=== PATIENT | male | born 1940 | race Caucasian/White ===

== ENCOUNTER 2020-05-20 15:24 | Inpatient (IN) | payer MEDICARE ==
[~2020-05-20] VITALS: Ht 193 cm; Wt 105.2 kg
[~2020-05-20 15:24] MED LIST: ACARBOSE100 MG PO; ACTOS45 MG PO; ASPIRIN81 MG PO; FUROSEMIDE20 MG PO; GLIPIZIDE5 MG PO; LEVOTHYROXINE50 MCG PO; LISINOPRIL-HCT1 EACH PO; METFORMIN HCL850 MG PO; METOPROLOL TART25 MG PO; PRAVASTATIN SOD10 MG PO
[2020-05-20] MEDS ORDERED: PANTOPRAZOLE 40 MG 10ML VIAL IV ONE (16:30)
[2020-05-20 17:00] LABS: BASOPHILS # (AUTO) 0.1 (0.0-0.1); BASOPHILS % 0.8 % (0.0-1.0); EOSINOPHILS # (AUTO) 0.2 (0.0-0.4); EOSINOPHILS % 2.6 % (0.0-6.0); HEMATOCRIT 31.8 % (38.2-49.6); LYMPHOCYTES # (AUTO) 0.6 (1.0-3.2); LYMPHOCYTES % 8.6 % (18.0-39.1); MEAN CORPUSCULAR HEMOGLOBIN 29.6 pg (28-32); MEAN CORPUSCULAR HGB CONC 31.4 g/dL (31-35); MEAN CORPUSCULAR VOLUME 94.1 fL (81-99); MONOCYTES # (AUTO) 0.6 (0.2-0.8); NEUTROPHILS # (AUTO) 5.2 (2.1-6.9); NEUTROPHILS % 78.8 % (38.7-80.0); PLATELET COUNT 362 x10e3/uL (140-360); RED BLOOD COUNT 3.38 x10e6/uL (4.3-5.7); RED CELL DISTRIBUTION WIDTH 14.9 % (11.7-14.4)
[2020-05-20 17:12] LABS: INR 0.94
[2020-05-20 17:13] LABS: PARTIAL THROMBOPLASTIN TIME 31.3 seconds (23.8-35.5)
[2020-05-20 17:23] LABS: ALBUMIN 3.4 g/dL (3.5-5.0); ALBUMIN/GLOBULIN RATIO 0.8 (0.8-2.0); CALCIUM 9.3 mg/dL (8.4-10.2); CREATININE, SERUM 1.29 mg/dL (0.72-1.25); MAGNESIUM 1.5 MG/DL (1.3-2.1)
[2020-05-20 17:29] LABS: CREATINE KINASE MB 2.4 ng/mL (0-5.0)
[2020-05-20] MEDS ORDERED: ONDANSETRON HCL INJ 2MG/ML 2ML 2 MG/ML VIAL IV PRN (22:45)
[2020-05-20] MEDS ORDERED: SODIUM CHLORIDE FLUSH 10 ML SYR INJ PRN (22:45)
[2020-05-20] MEDS ORDERED: PANTOPRAZOLE 40 MG 10ML VIAL ONE (22:53)
[2020-05-21] VITALS (16 sets, daily range): BP systolic 116–169; BP diastolic 46–81
[2020-05-21 05:17] LABS: BASOPHILS % 0.6 % (0.0-1.0); EOSINOPHILS # (AUTO) 0.2 (0.0-0.4); EOSINOPHILS % 2.6 % (0.0-6.0); HEMATOCRIT 26.5 % (38.2-49.6); HEMOGLOBIN 8.6 g/dL (14.0-18.0); LYMPHOCYTES # (AUTO) 0.6 (1.0-3.2); LYMPHOCYTES % 8.6 % (18.0-39.1); MEAN CORPUSCULAR HEMOGLOBIN 29.9 pg (28-32); MEAN CORPUSCULAR HGB CONC 32.5 g/dL (31-35); MONOCYTES # (AUTO) 0.7 (0.2-0.8); MONOCYTES % 10.2 % (4.4-11.3); NEUTROPHILS # (AUTO) 5.1 (2.1-6.9); NEUTROPHILS % 77.8 % (38.7-80.0); PLATELET COUNT 302 x10e3/uL (140-360); RED BLOOD COUNT 2.88 x10e6/uL (4.3-5.7); RED CELL DISTRIBUTION WIDTH 14.6 % (11.7-14.4)
[2020-05-21 05:57] LABS: ALANINE AMINOTRANSFERASE 15 IU/L (0-55); ALBUMIN 2.8 g/dL (3.5-5.0); ALBUMIN/GLOBULIN RATIO 0.8 (0.8-2.0); ALKALINE PHOSPHATASE 56 IU/L (40-150); ANION GAP 11.2 mmol/L (8-16); BLOOD UREA NITROGEN 13 mg/dL (7-26); BUN/CREATININE RATIO 13 (6-25); CALCIUM 8.4 mg/dL (8.4-10.2); CARBON DIOXIDE 31 mmol/L (22-29); CHLORIDE 99 mmol/L (98-107); CREATININE, SERUM 0.99 mg/dL (0.72-1.25); EST GLOMERULAR FILTRATION RATE > 60 ML/MIN (60-); GLUCOSE 199 mg/dL (74-118); POTASSIUM 3.2 mmol/L (3.5-5.1); SODIUM 138 mmol/L (136-145)
[2020-05-21 06:17] LABS: CREATINE KINASE MB 1.7 ng/mL (0-5.0)
[2020-05-21 06:23] LABS: CLARITY,URINE CLEAR (CLEAR); COLOR,URINE YELLOW (YELLOW); LEUKOCYTE ESTERASE ,URINE NEGATIVE (NEGATIVE); NITRITE,URINE NEGATIVE (NEGATIVE)
[2020-05-21 06:24] LABS: KETONES,URINE NEGATIVE (NEGATIVE); PROTEIN,URINE DIPSTICK 2+ (NEGATIVE); URINE UROBILINOGEN 0.2 mg/dL (0.2 - 1)
[2020-05-21 06:49] LABS: WBC,URINE (MAN) 0-5 /HPF (0-5)
[2020-05-21 06:50] LABS: BACTERIA,URINE RARE /HPF; EPITHELIAL CELLS,URINE FEW /LPF; RBC,URINE 21-50 /HPF (0-5); TRANSITIONAL EPI CELLS,URINE RARE
[2020-05-21] MEDS ORDERED: ZOLPIDEM TARTRATE 5 MG TAB PO PRN (08:15)
[2020-05-21] MEDS: LEVOTHYROXINE SODIUM 50 MCG TAB PO SCH (08:30)
[2020-05-21] MEDS: ASPIRIN 81 MG CHEW TAB PO SCH (09:00)
[2020-05-21] MEDS ORDERED: DEXTROSE 50% SYRINGE 50 ML IV PRN (09:15)
[2020-05-21] MEDS ORDERED: ONDANSETRON HCL INJ 2MG/ML 2ML 2 MG/ML VIAL IV PRN (09:45)
[2020-05-21] MEDS ORDERED: ACETAMINOPHEN 325 MG TAB PO PRN (09:45)
[2020-05-21] MEDS ORDERED: ACETAMINOPHEN/CODEINE 300MG - 30MG TAB PO PRN (09:45)
[2020-05-21] MEDS ORDERED: HYDRALAZINE HCL 20 MG/ML VIAL IV PRN (09:45)
[2020-05-21] MEDS: INSULIN LISPRO 100 UNIT/1 ML 3ML VIAL SQ SCH ×3 (11:30→21:10)
[2020-05-21] MEDS ORDERED: POTASSIUM CHLORIDE 10MEQ EA PO ONE (11:45)
[2020-05-21] MEDS: FUROSEMIDE INJ 10 MG/ML 2 ML VIAL IV SCH ×2 (13:17→22:18)
[2020-05-21 14:38] LABS: CREATINE KINASE MB 1.8 ng/mL (0-5.0)
[2020-05-21 14:50] LABS: BODY FLUID APPEARANCE SL.CLOUDY; BODY FLUID COLOR YELLOW; BODY FLUID TYPE PLEURAL
[2020-05-21 15:23] LABS: RBC,BODY FLUID 23 cells/uL; WBC,BODY FLUID 85 cells/uL
[2020-05-21] MEDS: HYDROCHLOROTHIAZIDE 25 MG TAB PO SCH (16:23)
[2020-05-21] MEDS: FAMOTIDINE 20 MG TAB PO SCH (16:23)
[2020-05-21] MEDS: POTASSIUM CHLORIDE 10MEQ EA PO SCH (16:24)
[2020-05-21] MEDS: ENOXAPARIN SOD INJ 40 MG/0.4 ML SYR SC SCH (16:25)
[2020-05-21] MEDS: METOPROLOL TARTRATE 25 MG TAB PO SCH (16:25)
[2020-05-21] MEDS: LISINOPRIL 20 MG TAB PO SCH (16:25)
[2020-05-21 16:36] LABS: LYMPHOCYTES,BODY FLUID 53 %; MONO/MACROPHG,BODY FLUID 14 %; NEUTROPHILS,BODY FLUID 22 %; OTHER CELLS,BODY FLUID 11 %
[2020-05-21] MEDS ORDERED: POTASSIUM CHLORIDE 10MEQ EA PO SCH (17:00)
[2020-05-21] MEDS ORDERED: FUROSEMIDE INJ 10 MG/ML 2 ML VIAL IV SCH (17:00)
[2020-05-21] MEDS: PRAVASTATIN 20 MG TAB PO SCH (21:08)
[2020-05-22] VITALS (11 sets, daily range): BP systolic 109–147; BP diastolic 54–68
[2020-05-22] MEDS: LEVOTHYROXINE SODIUM 50 MCG TAB PO SCH (05:25)
[2020-05-22] MEDS: FUROSEMIDE INJ 10 MG/ML 2 ML VIAL IV SCH ×3 (05:25→21:31)
[2020-05-22 05:53] LABS: BASOPHILS # (AUTO) 0.1 (0.0-0.1); BASOPHILS % 0.7 % (0.0-1.0); EOSINOPHILS # (AUTO) 0.2 (0.0-0.4); EOSINOPHILS % 2.2 % (0.0-6.0); LYMPHOCYTES # (AUTO) 0.7 (1.0-3.2); LYMPHOCYTES % 9.7 % (18.0-39.1); MEAN CORPUSCULAR HGB CONC 32.1 g/dL (31-35); MEAN CORPUSCULAR VOLUME 93.3 fL (81-99); MONOCYTES # (AUTO) 0.7 (0.2-0.8); MONOCYTES % 9.4 % (4.4-11.3); NEUTROPHILS # (AUTO) 5.9 (2.1-6.9); NEUTROPHILS % 77.7 % (38.7-80.0); PLATELET COUNT 317 x10e3/uL (140-360); RED CELL DISTRIBUTION WIDTH 14.6 % (11.7-14.4)
[2020-05-22 06:24] LABS: ALANINE AMINOTRANSFERASE 13 IU/L (0-55); ALBUMIN 2.9 g/dL (3.5-5.0); ALBUMIN/GLOBULIN RATIO 0.8 (0.8-2.0); ALKALINE PHOSPHATASE 57 IU/L (40-150); ANION GAP 11.5 mmol/L (8-16); BLOOD UREA NITROGEN 13 mg/dL (7-26); BUN/CREATININE RATIO 13 (6-25); CALCIUM 8.4 mg/dL (8.4-10.2); CARBON DIOXIDE 30 mmol/L (22-29); CHLORIDE 98 mmol/L (98-107); CREATININE, SERUM 0.99 mg/dL (0.72-1.25); EST GLOMERULAR FILTRATION RATE > 60 ML/MIN (60-); GLUCOSE 161 mg/dL (74-118); POTASSIUM 3.5 mmol/L (3.5-5.1); SODIUM 136 mmol/L (136-145)
[2020-05-22] MEDS: METOPROLOL TARTRATE 25 MG TAB PO SCH ×2 (09:00→17:22)
[2020-05-22] MEDS: LISINOPRIL 20 MG TAB PO SCH ×2 (09:00→17:21)
[2020-05-22] MEDS: HYDROCHLOROTHIAZIDE 25 MG TAB PO SCH ×2 (11:10→17:21)
[2020-05-22] MEDS: FAMOTIDINE 20 MG TAB PO SCH ×2 (11:10→17:22)
[2020-05-22] MEDS: ASPIRIN 81 MG CHEW TAB PO SCH (11:10)
[2020-05-22] MEDS: POTASSIUM CHLORIDE 10MEQ EA PO SCH ×2 (11:11→17:21)
[2020-05-22] MEDS: INSULIN LISPRO 100 UNIT/1 ML 3ML VIAL SQ SCH ×4 (11:12→21:32)
[2020-05-22] MEDS: ENOXAPARIN SOD INJ 40 MG/0.4 ML SYR SC SCH (17:15)
[2020-05-22] MEDS: PRAVASTATIN 20 MG TAB PO SCH (21:31)
[2020-05-23] VITALS: BP 116/56
[2020-05-23 04:00] VITALS: BP 132/62
[2020-05-23] MEDS: FUROSEMIDE INJ 10 MG/ML 2 ML VIAL IV SCH (06:00)
[2020-05-23] MEDS: LEVOTHYROXINE SODIUM 50 MCG TAB PO SCH (06:00)
[2020-05-23 06:21] LABS: BASOPHILS # (AUTO) 0.1 (0.0-0.1); BASOPHILS % 0.9 % (0.0-1.0); EOSINOPHILS # (AUTO) 0.2 (0.0-0.4); EOSINOPHILS % 2.8 % (0.0-6.0); HEMATOCRIT 28.1 % (38.2-49.6); HEMOGLOBIN 8.8 g/dL (14.0-18.0); LYMPHOCYTES # (AUTO) 0.7 (1.0-3.2); LYMPHOCYTES % 11.8 % (18.0-39.1); MEAN CORPUSCULAR HEMOGLOBIN 29.1 pg (28-32); MEAN CORPUSCULAR HGB CONC 31.3 g/dL (31-35); MONOCYTES # (AUTO) 0.7 (0.2-0.8); MONOCYTES % 12.7 % (4.4-11.3); NEUTROPHILS # (AUTO) 4.1 (2.1-6.9); NEUTROPHILS % 71.5 % (38.7-80.0); PLATELET COUNT 302 x10e3/uL (140-360); RED BLOOD COUNT 3.02 x10e6/uL (4.3-5.7); RED CELL DISTRIBUTION WIDTH 14.6 % (11.7-14.4)
[2020-05-23 06:32] LABS: ANION GAP 11.4 mmol/L (8-16); BLOOD UREA NITROGEN 17 mg/dL (7-26); BUN/CREATININE RATIO 15 (6-25); CALCIUM 8.3 mg/dL (8.4-10.2); CARBON DIOXIDE 34 mmol/L (22-29); CHLORIDE 93 mmol/L (98-107); EST GLOMERULAR FILTRATION RATE > 60 ML/MIN (60-); GLUCOSE 262 mg/dL (74-118); POTASSIUM 3.4 mmol/L (3.5-5.1); SODIUM 135 mmol/L (136-145)
[2020-05-23 07:31] VITALS: BP 109/60
[2020-05-23 07:49] VITALS: BP 109/60
[2020-05-23] MEDS: METOPROLOL TARTRATE 25 MG TAB PO SCH (07:51)
[2020-05-23] MEDS: LISINOPRIL 20 MG TAB PO SCH (07:52)
[2020-05-23] MEDS: INSULIN LISPRO 100 UNIT/1 ML 3ML VIAL SQ SCH (08:27)
[2020-05-23] MEDS ORDERED: METFORMIN HCL850 MG PO (09:00)
[2020-05-23] MEDS ORDERED: FUROSEMIDE40 MG PO ×2 (09:01→09:03)
[2020-05-23] MEDS ORDERED: K DUR10 MEQ PO (09:03)
[2020-05-23] MEDS: FAMOTIDINE 20 MG TAB PO SCH (09:07)
[2020-05-23] MEDS: ASPIRIN 81 MG CHEW TAB PO SCH (09:07)
[2020-05-23] MEDS: HYDROCHLOROTHIAZIDE 25 MG TAB PO SCH (09:07)
[2020-05-23] MEDS: POTASSIUM CHLORIDE 10MEQ EA PO SCH (09:07)
[2020-05-23] MEDS ORDERED: POTASSIUM CHLORIDE 10MEQ EA PO ONE (10:15)
== END 2020-05-23 10:50 | disposition home health service (06) | DRG 292 ==
LOC: ER 16:14 → ERHOLD 22:45 → MED/SURG 05-21 01:02 → OBSVTOIN 05-22 09:35
PROVIDERS: ADMIT Internal Medicine; ATTEND Internal Medicine
PROC: 0W993ZZ Drainage of Right Pleural Cavity, Percutaneous Approach (ICD-10-PCS; principal; 2020-05-21)
DX: I11.0 Hypertensive heart disease with heart failure (principal); L97.821 Non-pressure chronic ulcer of other part of left lower leg limited to breakdown of skin; L97.511 Non-pressure chronic ulcer of other part of right foot limited to breakdown of skin; I50.33 Acute on chronic diastolic (congestive) heart failure; I48.0 Paroxysmal atrial fibrillation; D64.9 Anemia, unspecified; E03.9 Hypothyroidism, unspecified; E78.5 Hyperlipidemia, unspecified; Z95.1 Presence of aortocoronary bypass graft; Z95.5 Presence of coronary angioplasty implant and graft; E11.9 Type 2 diabetes mellitus without complications; I87.8 Other specified disorders of veins; I83.028 Varicose veins of left lower extremity with ulcer other part of lower leg; Z11.52 Encounter for screening for COVID-19; Z79.84 Long term (current) use of oral hypoglycemic drugs
CPT/HCPCS: 32555; 36415; 71045; 71250; 74470; 80048; 80053; 81001; 82550; 82553; 82948; 83615; 83735; 83880; 84157; 84478; 84484; 85025; 85610; 85730; 86850; 86900; 87070; 87086; 87205; 88112; 88305; 89051; 93005; 93306; 99251; 99284; G0378; J1650; J1940; U0002

== ENCOUNTER → 2020-06-16 | Outpatient (CLI) | payer MEDICARE ==
[~2020-06-16] MED LIST changes: +FUROSEMIDE40 MG PO; +K DUR10 MEQ PO
[2020-06-16 12:19] LABS: BODY FLUID APPEARANCE SL.CLOUDY; BODY FLUID COLOR YELLOW; BODY FLUID TYPE PLEURAL; RBC,BODY FLUID 347 cells/uL; WBC,BODY FLUID 127 cells/uL
[2020-06-16 12:40] LABS: LYMPHOCYTES,BODY FLUID 41 %; MONO/MACROPHG,BODY FLUID 43 %; NEUTROPHILS,BODY FLUID 16 %
== END ==
LOC: US 09:02
PROVIDERS: ATTEND Internal Medicine
DX: J90 Pleural effusion, not elsewhere classified (principal)
CPT/HCPCS: 32555; 36415; 71045; 82945; 83615; 84157; 89051

== ENCOUNTER → 2020-06-17 | Outpatient (CLI) | payer MEDICARE ==
[2020-06-17 12:35] LABS: BLOOD UREA NITROGEN 15 mg/dL (7-26); BUN/CREATININE RATIO 14 (6-25); CREATININE, SERUM 1.08 mg/dL (0.72-1.25); EST GLOMERULAR FILTRATION RATE > 60 ML/MIN (60-)
== END ==
LOC: CT 12:01
PROVIDERS: ATTEND Internal Medicine
DX: Z09 Encounter for follow-up examination after completed treatment for conditions other than malignant neoplasm (principal); J90 Pleural effusion, not elsewhere classified
CPT/HCPCS: 36415; 71250; 82565; 84520

== ENCOUNTER → 2020-07-16 | Outpatient (CLI) | payer MEDICARE ==
[2020-07-16 10:31] LABS: HEMOGLOBIN 9.9 g/dL (14.0-18.0)
[2020-07-16 10:51] LABS: INR 0.97; PROTHROMBIN TIME 13.5 seconds (11.9-14.5)
[2020-07-16 10:52] LABS: PARTIAL THROMBOPLASTIN TIME 32.8 seconds (23.8-35.5)
[2020-07-16 15:30] LABS: BODY FLUID APPEARANCE CLEAR; BODY FLUID COLOR YELLOW; BODY FLUID TYPE PLEURAL
[2020-07-16 15:31] LABS: RBC,BODY FLUID 902 cells/uL; WBC,BODY FLUID 191 cells/uL
[2020-07-16 17:28] LABS: LYMPHOCYTES,BODY FLUID 47 %; MONO/MACROPHG,BODY FLUID 46 %; NEUTROPHILS,BODY FLUID 1 %; OTHER CELLS,BODY FLUID 6 %
== END ==
LOC: US 09:43
PROVIDERS: ATTEND Internal Medicine
DX: J90 Pleural effusion, not elsewhere classified (principal)
CPT/HCPCS: 32555; 36415; 71045; 83615; 84157; 85014; 85049; 85610; 85730; 87070; 87205; 88112; 88305; 89051

== ENCOUNTER 2021-12-21 06:46 | Inpatient (IN) | payer MEDICARE ==
[2021-12-17 11:08] LABS: BASOPHILS # (AUTO) 0.1 (0.0-0.1); BASOPHILS % 0.9 % (0.0-1.0); EOSINOPHILS # (AUTO) 0.2 (0.0-0.4); HEMATOCRIT 37.5 % (38.2-49.6); HEMOGLOBIN 12.1 g/dL (14.0-18.0); LYMPHOCYTES # (AUTO) 0.8 (1.0-3.2); LYMPHOCYTES % 14.5 % (18.0-39.1); MEAN CORPUSCULAR HEMOGLOBIN 30.9 pg (28-32); MEAN CORPUSCULAR HGB CONC 32.3 g/dL (31-35); MEAN CORPUSCULAR VOLUME 95.7 fL (81-99); MONOCYTES # (AUTO) 0.5 (0.2-0.8); MONOCYTES % 8.9 % (4.4-11.3); NEUTROPHILS # (AUTO) 4.2 (2.1-6.9); NEUTROPHILS % 72.4 % (38.7-80.0); PLATELET COUNT 297 x10e3/uL (140-360); RED BLOOD COUNT 3.92 x10e6/uL (4.3-5.7); RED CELL DISTRIBUTION WIDTH 12.8 % (11.7-14.4)
[2021-12-17 11:22] LABS: INR 0.92; PROTHROMBIN TIME 13.2 seconds (11.9-14.5)
[2021-12-17 11:26] LABS: ANION GAP 12.3 mmol/L (8-16); CALCIUM 8.7 mg/dL (8.4-10.2); CREATININE, SERUM 1.21 mg/dL (0.72-1.25); POTASSIUM 4.3 mmol/L (3.5-5.1)
[2021-12-21] VITALS (16 sets, daily range): BP systolic 128–176; BP diastolic 56–98
[~2021-12-21] VITALS: Ht 188 cm; Wt 98.9 kg
[~2021-12-21 06:46] MED LIST changes: +B12; +B6; +BASAGLAR K100 UNIT/1; +COLACE100 MG/10 PO; +D3; +HEPARIN SOD (PORCINE) 1000 UNIT/ML 30ML ONE; +LIDOCAINE HCL 1% 2 ML AMP ONE; +LISINOPRIL10 MG PO; +NOVOLOG100 UNIT/1 SC; +PROTAMINE SULFATE 10 MG/ML 5 ML VIAL ONE; +RANEXA1000 MG PO
[2021-12-21] MEDS ORDERED: THROMBIN FOR SOLN 5,000 UNIT VIAL ONE (07:03)
[2021-12-21] MEDS ORDERED: INSULIN REGULAR, HUMAN 100 UNIT/1 ML ONE ×3 (07:05→09:54)
[2021-12-21] MEDS ORDERED: LABETALOL HCL 0 ML ONE (09:56)
[2021-12-21] MEDS ORDERED: FENTANYL CITRATE/PF 100MCG/2 ML INJ ONE (10:04)
[2021-12-21 10:15] LABS: BASOPHILS # (AUTO) 0.1 (0.0-0.1); BASOPHILS % 0.8 % (0.0-1.0); EOSINOPHILS # (AUTO) 0.1 (0.0-0.4); HEMATOCRIT 31.6 % (38.2-49.6); HEMOGLOBIN 10.5 g/dL (14.0-18.0); LYMPHOCYTES # (AUTO) 0.8 (1.0-3.2); MEAN CORPUSCULAR HEMOGLOBIN 30.4 pg (28-32); MEAN CORPUSCULAR HGB CONC 33.2 g/dL (31-35); MEAN CORPUSCULAR VOLUME 91.6 fL (81-99); MONOCYTES # (AUTO) 0.6 (0.2-0.8); MONOCYTES % 9.4 % (4.4-11.3); NEUTROPHILS # (AUTO) 4.8 (2.1-6.9); NEUTROPHILS % 74.5 % (38.7-80.0); PLATELET COUNT 228 x10e3/uL (140-360); RED BLOOD COUNT 3.45 x10e6/uL (4.3-5.7); RED CELL DISTRIBUTION WIDTH 12.4 % (11.7-14.4)
[2021-12-21] MEDS ORDERED: HYDRALAZINE HCL 20 MG/ML VIAL ONE (10:17)
[2021-12-21] MEDS ORDERED: Morphine 4mg INJECTION 4 MG/ML INJ IV PRN (10:30)
[2021-12-21] MEDS ORDERED: Morphine 2mg Syringe 2 MG/ML SYR ONE ×2 (10:38→12:27)
[2021-12-21] MEDS ORDERED: ONDANSETRON HCL 4 MG ORAL DISINTEGRATING TAB PO PRN (10:45)
[2021-12-21] MEDS ORDERED: HYDROCODONE/APAP 5MG-325MG TAB PO PRN ×2 (10:45)
[2021-12-21 10:54] LABS: ALBUMIN 3.2 g/dL (3.5-5.0); ALBUMIN/GLOBULIN RATIO 0.8 (0.8-2.0); ANION GAP 12.3 mmol/L (8-16); CREATININE, SERUM 1.2 mg/dL (0.72-1.25); POTASSIUM 3.3 mmol/L (3.5-5.1)
[2021-12-21] MEDS ORDERED: DEXTROSE 50% SYRINGE 50 ML IV PRN (11:00)
[2021-12-21] MEDS ORDERED: SODIUM CHLORIDE 0.9% 1000ML 1,000 ML ONE (11:55)
[2021-12-21] MEDS: LABETALOL HCL 5 MG/ML 20ML VIAL IV PRN (13:40)
[2021-12-21] MEDS ORDERED: HYDRALAZINE HCL 20 MG/ML VIAL IV ONE (16:00)
[2021-12-21] MEDS: METOPROLOL TARTRATE 25 MG TAB PO SCH (16:54)
[2021-12-21] MEDS: Morphine 2mg Syringe 2 MG/ML SYR IV PRN ×2 (17:10→20:31)
[2021-12-21] MEDS: SODIUM CHLORIDE 0.9% 1000ML 1,000 ML IV SCH ×2 (17:44→19:27)
[2021-12-21] MEDS: INSULIN REGULAR, HUMAN 100 UNIT/1 ML SQ SCH ×3 (18:00→23:08)
[2021-12-21] MEDS: HYDRALAZINE HCL 20 MG/ML VIAL IV PRN ×2 (19:27→23:09)
[2021-12-21] MEDS: ATORVASTATIN 20 MG TAB PO SCH (20:10)
[2021-12-22] VITALS (27 sets, daily range): BP systolic 124–174; BP diastolic 44–68
[2021-12-22 04:51] LABS: BASOPHILS % 0.2 % (0.0-1.0); HEMATOCRIT 31.9 % (38.2-49.6); HEMOGLOBIN 10.8 g/dL (14.0-18.0); LYMPHOCYTES # (AUTO) 0.5 (1.0-3.2); LYMPHOCYTES % 5.5 % (18.0-39.1); MEAN CORPUSCULAR HEMOGLOBIN 30.9 pg (28-32); MEAN CORPUSCULAR HGB CONC 33.9 g/dL (31-35); MEAN CORPUSCULAR VOLUME 91.1 fL (81-99); MONOCYTES # (AUTO) 0.7 (0.2-0.8); MONOCYTES % 7.6 % (4.4-11.3); NEUTROPHILS # (AUTO) 7.6 (2.1-6.9); NEUTROPHILS % 86.2 % (38.7-80.0); PLATELET COUNT 269 x10e3/uL (140-360); RED CELL DISTRIBUTION WIDTH 13.1 % (11.7-14.4)
[2021-12-22 05:15] LABS: ALBUMIN 3.3 g/dL (3.5-5.0); ALBUMIN/GLOBULIN RATIO 0.8 (0.8-2.0); ANION GAP 12.6 mmol/L (8-16); CALCIUM 8.4 mg/dL (8.4-10.2); CREATININE, SERUM 1.02 mg/dL (0.72-1.25); POTASSIUM 3.6 mmol/L (3.5-5.1)
[2021-12-22] MEDS: LEVOTHYROXINE SODIUM 88 MCG TAB PO SCH (05:56)
[2021-12-22] MEDS: INSULIN REGULAR, HUMAN 100 UNIT/1 ML SQ SCH ×4 (05:58→23:55)
[2021-12-22] MEDS: SODIUM CHLORIDE 0.9% 1000ML 1,000 ML IV SCH (05:59)
[2021-12-22] MEDS ORDERED: SODIUM CHLORIDE FLUSH 10 ML SYR INJ PRN (09:00)
[2021-12-22] MEDS ORDERED: ONDANSETRON HCL INJ 2MG/ML 2ML 2 MG/ML VIAL IV PRN (09:15)
[2021-12-22] MEDS: DOCUSATE SODIUM LIQD 100 MG/10 ML UDC PO SCH (09:25)
[2021-12-22] MEDS: RANOLAZINE 500 MG TABSR PO SCH (09:26)
[2021-12-22] MEDS: ASPIRIN 81 MG ENTERIC COATED PO SCH (09:30)
[2021-12-22] MEDS: METOPROLOL TARTRATE 25 MG TAB PO SCH ×3 (09:30→17:13)
[2021-12-22] MEDS: ENOXAPARIN SOD INJ 40 MG/0.4 ML SYR SC SCH (09:30)
[2021-12-22] MEDS ORDERED: POTASSIUM CHLORIDE 20 MEQ TAB CR PO ONE (12:00)
[2021-12-22] MEDS: LABETALOL HCL 5 MG/ML 20ML VIAL IV PRN (13:10)
[2021-12-22] MEDS ORDERED: Morphine 2mg Syringe 2 MG/ML SYR IV PRN (13:30)
[2021-12-22] MEDS: HYDRALAZINE HCL 20 MG/ML VIAL IV PRN (14:04)
[2021-12-22] MEDS: ATORVASTATIN 20 MG TAB PO SCH (20:59)
[2021-12-22] MEDS ORDERED: LISINOPRIL 2.5 MG TAB PO SCH (21:00)
[2021-12-23] VITALS (13 sets, daily range): BP systolic 151–182; BP diastolic 65–82
[2021-12-23] MEDS: HYDRALAZINE HCL 20 MG/ML VIAL IV PRN (04:14)
[2021-12-23] MEDS: LEVOTHYROXINE SODIUM 88 MCG TAB PO SCH (05:27)
[2021-12-23] MEDS: INSULIN REGULAR, HUMAN 100 UNIT/1 ML SQ SCH (05:31)
[2021-12-23 07:09] LABS: BASOPHILS % 0.3 % (0.0-1.0); EOSINOPHILS % 0.3 % (0.0-6.0); HEMATOCRIT 33.9 % (38.2-49.6); HEMOGLOBIN 10.9 g/dL (14.0-18.0); LYMPHOCYTES # (AUTO) 0.6 (1.0-3.2); LYMPHOCYTES % 6.1 % (18.0-39.1); MEAN CORPUSCULAR HEMOGLOBIN 30.4 pg (28-32); MEAN CORPUSCULAR HGB CONC 32.2 g/dL (31-35); MEAN CORPUSCULAR VOLUME 94.4 fL (81-99); MONOCYTES # (AUTO) 0.9 (0.2-0.8); MONOCYTES % 9.3 % (4.4-11.3); NEUTROPHILS # (AUTO) 8.2 (2.1-6.9); NEUTROPHILS % 83.7 % (38.7-80.0); PLATELET COUNT 271 x10e3/uL (140-360); RED BLOOD COUNT 3.59 x10e6/uL (4.3-5.7)
[2021-12-23 07:36] LABS: ALBUMIN 3.2 g/dL (3.5-5.0); ALBUMIN/GLOBULIN RATIO 0.7 (0.8-2.0); ANION GAP 11.6 mmol/L (8-16); CALCIUM 8.2 mg/dL (8.4-10.2); CREATININE, SERUM 1.01 mg/dL (0.72-1.25); POTASSIUM 3.6 mmol/L (3.5-5.1)
[2021-12-23] MEDS: DOCUSATE SODIUM LIQD 100 MG/10 ML UDC PO SCH (09:00)
[2021-12-23] MEDS: RANOLAZINE 500 MG TABSR PO SCH (09:17)
[2021-12-23] MEDS: METOPROLOL TARTRATE 25 MG TAB PO SCH (09:17)
[2021-12-23] MEDS: ENOXAPARIN SOD INJ 40 MG/0.4 ML SYR SC SCH (09:18)
[2021-12-23] MEDS: ASPIRIN 81 MG ENTERIC COATED PO SCH (09:18)
== END 2021-12-23 11:20 | disposition home or self-care (01) | DRG 38 ==
LOC: OR 06:46 → PACU V 11:04 → ICU 15:24
PROVIDERS: ADMIT Thoracic Surgery (Cardiothoracic Vascular Surgery); ATTEND Thoracic Surgery (Cardiothoracic Vascular Surgery)
PROC: 03UJ0KZ Supplement Left Common Carotid Artery with Nonautologous Tissue Substitute, Open Approach (ICD-10-PCS; 2021-12-21)
PROC: 03CJ0ZZ Extirpation of Matter from Left Common Carotid Artery, Open Approach (ICD-10-PCS; principal; 2021-12-21 06:57)
DX: I65.22 Occlusion and stenosis of left carotid artery (principal); I50.32 Chronic diastolic (congestive) heart failure; Z79.01 Long term (current) use of anticoagulants; I25.10 Atherosclerotic heart disease of native coronary artery without angina pectoris; Z95.5 Presence of coronary angioplasty implant and graft; E11.9 Type 2 diabetes mellitus without complications; I11.0 Hypertensive heart disease with heart failure; E03.9 Hypothyroidism, unspecified; I25.2 Old myocardial infarction; Z20.822 Contact with and (suspected) exposure to COVID-19; I48.0 Paroxysmal atrial fibrillation; E78.5 Hyperlipidemia, unspecified
CPT/HCPCS: 0223U; 36415; 71046; 80048; 80053; 82948; 85025; 85610; 85730; 86850; 86900; 88304; 88311; 94799; 96372; C1768; J0360; J0690; J1644; J1650; J1817; J2001; J2270; J2405; J2720; J3010; J7030; Q0162

== ENCOUNTER 2022-10-18 10:17 | Outpatient (RCR) | payer MEDICARE ==
[~2022-10-18 10:17] MED LIST changes: -HEPARIN SOD (PORCINE) 1000 UNIT/ML 30ML ONE; -LIDOCAINE HCL 1% 2 ML AMP ONE; -PROTAMINE SULFATE 10 MG/ML 5 ML VIAL ONE
[2022-10-20] MEDS ORDERED: MINERAL OIL/PETROLAT/GLYCERI 2OZ CRM ONE (13:54)
[2022-10-20] MEDS ORDERED: LIDOCAINE VISC 2% SOLN 15 ML UDC ONE (13:54)
== END 2022-10-19 ==
LOC: WCC 10:17
PROVIDERS: ATTEND Family Medicine Adult Medicine
DX: S81.802A Unspecified open wound, left lower leg, initial encounter (principal); E11.40 Type 2 diabetes mellitus with diabetic neuropathy, unspecified; T24.232A Burn of second degree of left lower leg, initial encounter; S40.812A Abrasion of left upper arm, initial encounter; I87.2 Venous insufficiency (chronic) (peripheral); R60.0 Localized edema

== ENCOUNTER 2022-10-20 08:48 | Outpatient (RCR) | payer MEDICARE ==
[2022-10-20 12:47] LABS: BASOPHILS # (AUTO) 0.1 (0.0-0.1); EOSINOPHILS # (AUTO) 0.2 (0.0-0.4); EOSINOPHILS % 2.8 % (0.0-6.0); HEMATOCRIT 32.9 % (38.2-49.6); HEMOGLOBIN 10.4 g/dL (14.0-18.0); LYMPHOCYTES # (AUTO) 0.8 (1.0-3.2); LYMPHOCYTES % 13.5 % (18.0-39.1); MEAN CORPUSCULAR HEMOGLOBIN 28.7 pg (28-32); MEAN CORPUSCULAR HGB CONC 31.6 g/dL (31-35); MEAN CORPUSCULAR VOLUME 90.9 fL (81-99); MONOCYTES # (AUTO) 0.7 (0.2-0.8); MONOCYTES % 10.8 % (4.4-11.3); NEUTROPHILS # (AUTO) 4.4 (2.1-6.9); NEUTROPHILS % 71.7 % (38.7-80.0); PLATELET COUNT 242 x10e3/uL (140-360); RED BLOOD COUNT 3.62 x10e6/uL (4.3-5.7); RED CELL DISTRIBUTION WIDTH 13.6 % (11.7-14.4)
[2022-10-20 13:14] LABS: ALBUMIN 3.4 g/dL (3.5-5.0); ALBUMIN/GLOBULIN RATIO 0.9 (0.8-2.0); CALCIUM 8.5 mg/dL (8.4-10.2); CREATININE, SERUM 1.61 mg/dL (0.72-1.25)
== END 2022-11-18 ==
LOC: WCC 08:48
PROVIDERS: ATTEND Family Medicine Adult Medicine
DX: E11.40 Type 2 diabetes mellitus with diabetic neuropathy, unspecified (principal); S81.802A Unspecified open wound, left lower leg, initial encounter; S40.812A Abrasion of left upper arm, initial encounter; I87.2 Venous insufficiency (chronic) (peripheral); T24.232A Burn of second degree of left lower leg, initial encounter; R60.0 Localized edema
CPT/HCPCS: 36415; 80053; 83036; 84134; 85025